=== PATIENT | female | born 1990 | race Caucasian/White ===

== ENCOUNTER 2021-12-03 11:02 | Emergency (ER) | payer OTHER ==
[~2021-12-03] VITALS: Ht 154.9 cm; Wt 74.8 kg
== END 2021-12-03 14:18 | disposition home or self-care (01) ==
LOC: ER 11:02
DX: T14.90XA Injury, unspecified, initial encounter (principal); W18.30XA Fall on same level, unspecified, initial encounter; Y93.89 Activity, other specified; Y92.59 Other trade areas as the place of occurrence of the external cause; Y99.9 Unspecified external cause status; M54.9 Dorsalgia, unspecified; Z88.0 Allergy status to penicillin; Z88.8 Allergy status to other drugs, medicaments and biological substances